=== PATIENT | female | born 1965 | race Caucasian/White ===

== ENCOUNTER 2017-04-11 16:24 | Emergency (ER) | payer MEDICAID ==
[~2017-04-11] VITALS: Ht 157.5 cm; Wt 65.8 kg
--- NOTE | 2017-04-11 16:51 | NUR ---
PATIENT AMBULATED TO BED 12
[2017-04-11 16:55] VITALS: BP 148/88
--- NOTE | 2017-04-11 16:55 | NUR ---
51F BIB FAMILY C/O RASH TO RT UPPER TRUNK X 2 WEEKS; SMALL "SPOTS" OF ERYTHEMA NOTED TO SITE; NO ACTIVE BLEEDING NOTED FROM SITES AT THIS TIME; PT C/O SHARP PAIN TO SITES, NON-RADIATING, 7/10 AT THIS TIME; PT C/O INTERMITTENT CHRONIC THROBBING HEADACHE TO TOP OF HEAD, NON-RADIATING, 5/10 X 19 YEARS; PT STATES NO BLURRY VISION OR VISION CHANGES AT THIS TIME; PT STATES NO RECENT TRAUMA OR INJURY TO HEAD AT THIS TIME; PT AA&OX4, PERRLA, BL LUNG SOUNDS CLEAR, RR EVEN/UNLABORED, SKIN IS WARM/DRY/INTACT WITH EVEN AND STEADY GAIT; PT RESTING IN BED WITH HOB ELEVATED AND IN LOWEST POSITION; POSITIONED FOR COMFORT; ER MD MADE AWARE OF STATUS. WILL CONTINUE TO MONITOR.
[2017-04-11 18:24] VITALS: BP 141/82
--- NOTE | 2017-04-11 18:24 | NUR ---
Patient discharged with v/s stable. Written and verbal after care instructions given and explained. Patient alert, oriented and verbalized understanding of instructions. Ambulatory with steady gait. All questions addressed prior to discharge. ID band removed. Patient advised to follow up with PMD. Rx of ACYCLOVIR 800MG TAB, NAPROSYN 375MG & NORCO 5MG-325MG TAB given. Patient educated on indication of medication including possible reaction and side effects. Opportunity to ask questions provided and answered.
== END 2017-04-11 18:24 | disposition home or self-care (01) ==
LOC: MED 16:24
DX: B02.9 Zoster without complications (principal); R03.0 Elevated blood-pressure reading, without diagnosis of hypertension
CPT/HCPCS: 99283

== ENCOUNTER 2018-02-01 18:08 | Emergency (ER) | payer MEDICAID ==
[~2018-02-01] VITALS: Ht 152.4 cm; Wt 63.5 kg
[2018-02-01 18:13] VITALS: BP 146/100
[2018-02-01 19:04] VITALS: BP 146/100
== END 2018-02-01 19:05 | disposition home or self-care (01) ==
LOC: MED 18:08
DX: Z02.1 Encounter for pre-employment examination (principal)
CPT/HCPCS: 99281